=== PATIENT | female | born 1970 | race Caucasian/White ===

== ENCOUNTER 2017-08-29 08:00 | Emergency (ER) | payer MEDICAID ==
[~2017-08-29] VITALS: Ht 167.6 cm; Wt 60.8 kg
[2017-08-29 08:01] VITALS: Ht 167.6 cm; Wt 60.8 kg
[2017-08-29] MEDS ORDERED: KETOROLAC 30 MG INJ IM STA (08:53)
[2017-08-29] MEDS ORDERED: LORAZEPAM 2 MG INJ IM ONE (09:00)
[2017-08-29] MEDS ORDERED: DEXAMETHASONE 10 MG/ML 1 ML INJ IM ONE (09:00)
--- NOTE | 2017-08-29 09:27 | RADRPT ---
PROCEDURE: CT brain without contrast CLINICAL INDICATION: Headaches, hypertension TECHNIQUE: CT of the brain without contrast was performed on a multidetector CT scanner, with multi planar reformats. One or more of the following dose reduction techniques were used: Automated expos ure control, adjustment in mA and / or kV according to patient size, use of iterative reconstructive technique. CTDIvol = 45 mGy; DLP = 720 mGy-cm. DICOM images are available. COMPARISON: None available FINDINGS: No acute intracranial hemorrhage is identified. No extra-axial fluid collection is seen. There is no mass effect. No midline shift is identified. Ventricles and sulci are within normal limits for size and configuration. The density of the brain is unremarkable. Oakes-white differentiation is preserved. Atherosclerotic calcifications are internal carotid arteries Calvarium and skull base are intact. Mastoid air cells and imaged paranasal sinuses grossly clear. IMPRESSION: No evidence of acute intracranial pathology. RPTAT: HH .Hamzah Steward MD, MD Date Time Electronically viewed and signed by .Hamzah Steward MD, on 08/29/2017 09:26 .O/
--- NOTE | 2017-08-29 09:35 | RADRPT ---
PROCEDURE: CT cervical spine without contrast. CLINICAL INDICATION: Neck pain 1 month, history of RA TECHNIQUE: CT of the cervical spine without contrast was performed on a multidetector CT scanner, w ith multiplanar reformats. One or more of the following dose reduction techniques were used: Automa carlos exposure control, adjustment in mA and / or kV according to patient size, use of iterative recon structive technique. CTDIvol = 22 mGy and DLP = 415 mGy-cm. DICOM images are available. COMPARISON: None available. FINDINGS: No acute fracture or dislocation is identified. There is straightening of the lordosis of the cervi layne spine. Alignment is intact. The vertebral bodies are maintained in height. Mild degenerative changes are seen at the anterior atlantoaxial joint. No erosive or destructive osseous changes are seen. There is disc space narrowing, moderate at C5-6 and mild at C2-3. There are anterior osteophy dorita at C5-6. Mild posterior disc osteophytes are identified at the C5-6 and C6-7, and mild facet art hropathy is seen at C4-5, C5-6 and C6-7. No central canal stenosis or foraminal narrowing is identif ied. Noted is a corticated ossific density adjacent to the tip of the C7 spinous process. IMPRESSION: 1. No acute osseous abnormality identified. 2. Cervical spondylosis/degenerative enthesopathy, more pronounced at C5-6 as described above. RPTAT: HH .Hamzah Steward MD, MD Date Time Electronically viewed and signed by .Hamzah Steward MD, MD on 08/29/2017 09:35 .O/
[2017-08-29] MEDS ORDERED: CYCL-319 PO (09:38)
[2017-08-29] MEDS ORDERED: NAPR-260 PO (09:38)
--- NOTE | 2017-08-29 09:48 | ERD ---
ER Documentation Chief Complaint Chief Complaint stiff neck x3wks getting worse HPI This patient is a 47-year-old female with past medical history of rheumatoid arthritis and hypertension presenting to the emergency department with complaints of headache and neck pain ongoing intermittently for the past 4 weeks. Symptoms are worse with movement. Symptoms are worse in the morning. Headache localized to the occipital lobe with radiation down her neck, the patient describes it as a nerve pain. No fevers, chills, trauma, or other symptoms reported at this time. ROS All systems reviewed and are negative except as per history of present illness. Medications Home Meds Active Scripts Naproxen* (Naprosyn*) 500 Mg Tablet, 500 MG PO BID Y for PAIN AND/OR INFLAMMATION, #30 TAB Prov:WILLIS BRANNON PA-C 08/29/17 Cyclobenzaprine Hcl* (Cyclobenzaprine Hcl*) 10 Mg Tablet, 10 MG PO TID, #15 TAB Prov:WILLIS BRANNON PA-C 08/29/17 Allergies Allergies: Coded Allergies: No Known Allergy (Verified , 08/29/17) PMhx/Soc History of Surgery: No Anesthesia Reaction: No Hx Neurological Disorder: No Hx Respiratory Disorders: No Hx Cardiac Disorders: Yes (HTN, PALPITATIONS) Hx Psychiatric Problems: No Hx Miscellaneous Medical Probl: Yes (RHEUMITOID ARTHRITIS) Hx Alcohol Use: No Hx Substance Use: No Hx Tobacco Use: No Physical Exam Vitals Vital Signs Date Time Temp Pulse Resp B/P Pulse Ox O2 Delivery O2 Flow Rate FiO2 08/29/17 08:01 98.1 107 18 175/79 98 Physical Exam Const: Nontoxic, well-appearing female in no acute distress. Head: Atraumatic. Normocephalic. Eyes: Normal Conjunctiva ENT: Normal External Ears, Nose and Mouth. Neck: No meningismus. There is muscle tightness noted on palpation of the paraspinal muscles of the cervical spine. Trapezius muscles are tight on palpation bilaterally. The patient has slightly decreased range of motion looking side to side of the neck due to increased muscle tension. Resp: Clear to auscultation bilaterally Cardio: Regular rate and rhythm, no murmurs Skin: No petechiae or rashes Back: No midline or flank tenderness Ext: No cyanosis, or edema Neur: Awake and alert Psych: Normal Mood and Affect Results 24 hrs Current Medications Medications (Trade) Dose Ordered Sig/Jaye Route PRN Reason Start Time Stop Time Status Last Admin Dose Admin Ketorolac Tromethamine (Toradol) 30 mg ONCE STAT IM 08/29/17 08:53 08/29/17 08:55 DC 08/29/17 09:02 Dexamethasone (Decadron) 10 mg ONCE ONCE IM 08/29/17 09:00 08/29/17 09:01 DC 08/29/17 09:02 Lorazepam (Ativan) 1 mg ONCE ONCE IM 08/29/17 09:00 08/29/17 09:01 DC 08/29/17 09:03 Procedures/MDM 47-year-old female presents to the emergency department with complaints of head and neck pain. Patient does have history of rheumatoid arthritis and pain may be a complication secondary to this. However, given the patient has had a headache with neck pain for 4 weeks, I did obtain CT scan of the head and cervical spine. There is no significant acute abnormalities noted on the scans. The patient is treated in the department with IM Toradol, IM Decadron, p.o. Ativan, and she was feeling significantly improved on reevaluation. The patient was stable and appropriate for discharge and outpatient management with prescriptions for Flexeril and naproxen. Low suspicion for acute intracranial abnormalities, cervical spine stenosis, cervical spine fracture, or other emergencies. No evidence of life-threatening pathology at time of discharge. Pt/family in agreement with discharge plan/diagnosis. Pt/family advised to return immediately with any new or worsening symptoms. Follow-up with primary care physician within the next 1-2 days. PROCEDURE: CT brain without contrast CLINICAL INDICATION: Headaches, hypertension TECHNIQUE: CT of the brain without contrast was performed on a multidetector CT scanner, with multiplanar reformats. One or more of the following dose reduction techniques were used: Automated exposure control, adjustment in mA and / or kV according to patient size, use of iterative reconstructive technique. CTDIvol = 45 mGy; DLP = 720 mGy-cm. DICOM images are available. COMPARISON: None available FINDINGS: No acute intracranial hemorrhage is identified. No extra-axial fluid collection is seen. There is no mass effect. No midline shift is identified. Ventricles and sulci are within normal limits for size and configuration. The density of the brain is unremarkable. Oakes-white differentiation is preserved. Atherosclerotic calcifications are internal carotid arteries Calvarium and skull base are intact. Mastoid air cells and imaged paranasal sinuses grossly clear. IMPRESSION: No evidence of acute intracranial pathology. RPTAT: .Hamzah Steward MD, MD Date Time Electronically viewed and signed by .Hamzah Steward MD, MD on 08/29/2017 09:26 PROCEDURE: CT cervical spine without contrast. CLINICAL INDICATION: Neck pain 1 month, history of RA TECHNIQUE: CT of the cervical spine without contrast was performed on a multidetector CT scanner, with multiplanar reformats. One or more of the following dose reduction techniques were used: Automated exposure control, adjustment in mA and / or kV according to patient size, use of iterative reconstructive technique. CTDIvol = 22 mGy and DLP = 415 mGy-cm. DICOM images are available. COMPARISON: None available. FINDINGS: No acute fracture or dislocation is identified. There is straightening of the lordosis of the cervical spine. Alignment is intact. The vertebral bodies are maintained in height. Mild degenerative changes are seen at the anterior atlantoaxial joint. No erosive or destructive osseous changes are seen. There is disc space narrowing, moderate at C5-6 and mild at C2-3. There are anterior osteophytes at C5-6. Mild posterior disc osteophytes are identified at the C5-6 and C6-7, and mild facet arthropathy is seen at C4-5, C5-6 and C6-7. No central canal stenosis or foraminal narrowing is identified. Noted is a corticated ossific density adjacent to the tip of the C7 spinous process. IMPRESSION: 1. No acute osseous abnormality identified. 2. Cervical spondylosis/degenerative enthesopathy, more pronounced at C5-6 as described above. RPTAT: .Hamzah Steward MD, MD Date Time Electronically viewed and signed by .Hamzah Steward MD, MD on 08/29/2017 09:35 Departure Diagnosis: Primary Impression: Headache Headache type: unspecified Headache chronicity pattern: acute headache Intractability: not intractable Qualified Code: R51 - Acute nonintractable headache, unspecified headache type Additional Impression: Neck pain Condition: Fair Patient Instructions: Self-Care for Headaches, Neck Pain, No Trauma [facility] Usted se beasley hecho un examen mdico de control que le indica que no est en jackie condicin que requiera tratamiento urgente en el Departamento de Emergencia. Un estudio ms profundo y el tratamiento de olivera condicin pueden esperar sin ningn riesgo hasta que usted sea atendida/o en el consultorio de olivera mdico o jackie cl virgil. Es responsabilidad suya arreglar jackie sally para el seguimiento del jose. MANEJO DE CONDICIONES NO URGENTES EN EL FUTURO 1) Si usted tiene un mdico de atencin primaria: Usted debera llamar a olivera mdico de atencin primaria antes de venir al departamento de emergencia. Despus de las horas de consultorio, olivera doctor o olivera asociado/a est disponible por telfono. El mdico o enfermero de dm en el servicio telefnico puede asesorarle por autumn medio para atender el problema, o jose contrario se puede programar jackie sally. 2) Si usted no tiene un mdico de atencin primaria: Llame al mdico o clnica de referencia que aparece abajo lacey las horas de consultorio para hacer jackie sally para que le vean. CLINICAS: [facility] [phone] [id number] [facility] [phone] [address] [facility] [phone] [address] [place] [phone] [place] [phone] [address] [facility]. [phone] [address] Additional Instructions: Llame al doctor MAANA y chidi jackie SALLY PARA DENTRO DE 1-2 CHAN.Dgale a la secretaria que nosotros le instruimos hacer esta sally.Avise o llame si olivera condicin se empeora antes de la sally. Regresa aqui si peor o no mejor. WILLIS BRANNON PA-C Aug 29, 2017 09:48
== END 2017-08-29 09:57 | disposition home or self-care (01) ==
LOC: FTE 08:00
DX: R51 Headache (principal); M54.2 Cervicalgia; I10 Essential (primary) hypertension
CPT/HCPCS: 70450; 72125; 96372; J1100; J1885; J2060; Z7502